=== PATIENT | female | born 1965 | race Hispanic/Latino ===

== ENCOUNTER 2018-01-27 13:43 | Emergency (ER) | payer BC, OTHER ==
[2018-01-27 14:31] LABS: Protime INR 1.05
[2018-01-27 14:34] LABS: Absolute Monocytes 0.7 K/uL (0.1-1.3); Absolute Neutrophil 5.2 K/uL (1.8-8.0); Basophils % 0.8 % (0-1.3); Eosinophils % 2.8 % (0-4.4); Hematocrit 43.1 % (36.0-45.0); Lymphocytes % 32.6 % (15.3-44.8); MCH 28.4 pg (27.0-35.0); MCV 81.1 fL (80-100); MPV 9.6 fL (7.6-11.3); Monocytes % 7.8 % (3.3-12.3); RBC Red Blood Cell Count 5.32 M/uL (3.86-4.86)
[2018-01-27 14:58] LABS: ALT/SGPT 133 U/L (12-78); AST/SGOT 88 U/L (15-37); Albumin 4.1 g/dL (3.4-5.0); Alkaline Phosphatase 106 U/L (45-117); BUN Blood Urea Nitrogen 11 mg/dL (7-18); Bicarbonate 28 mmol/L (21-32); Bilirubin Direct 0.3 mg/dL (0-0.2); Bilirubin Total 0.8 mg/dL (0.2-1.0); CKMB Creatine Kinase MB < 1.0 ng/mL (0.3-3.6); Creatine Phosphokinase 122 U/L (26-192); Glucose Level 87 mg/dL (74-106); Magnesium 2.3 mg/dL (1.8-2.4); NT PRO-BNP 44 pg/mL (<125); Potassium 3.8 mmol/L (3.5-5.1); Protein, Total 8.1 g/dL (6.4-8.2); Sodium Level 142 mmol/L (136-145); Troponin (Emerg Dept Use Only) < 0.02 ng/mL (0.0-0.045)
[2018-01-27] MEDS ORDERED: LIDOCAINE VISCOUS 2% SOLN 15 ML UDC ONE (15:12)
[2018-01-27] MEDS ORDERED: CLOPIDOGREL 75 MG TABLET ONE (15:12)
[2018-01-27] MEDS ORDERED: FAMOTIDINE 20 MG/2 ML VIAL IV ONE (15:12)
[2018-01-27] MEDS ORDERED: MAGNE/ALUM HYDROXD 30 ML UCUP ONE (15:12)
[2018-01-27 15:22] LABS: Urine Blood NEGATIVE (NEG); Urine Glucose NEGATIVE (NEG); Urine Protein NEGATIVE (NEG)
--- NOTE | 2018-01-27 16:06 | EKG ---
Test Date: 2018-01-27 Test Time: 14:08:48 Light Rail Train Operator: MARILYN MEASUREMENT RESULTS: Intervals: Rate: 68 NE: 134 QRSD: 68 QT: 350 QTc: 372 [place]: P: 13 NE: 134 QRS: 0 T: 19 INTERPRETIVE STATEMENTS: Normal sinus rhythm Normal ECG No previous ECG available for comparison Electronically Signed On 01-27-18 16:05:53 CDT by James High
--- NOTE | 2018-01-27 17:53 | RAD REPORT ---
EXAM DESCRIPTION: RAD - Chest Single View - 01/27/2018 2:34 pm CLINICAL HISTORY: CHEST PAIN Chest pain. COMPARISON: Chest Pa And Lat (2 Views) dated 10/03/2015; ABDOMEN ACUTE SERIES dated 11/20/2012 FINDINGS: Portable technique limits examination quality. The lungs are grossly clear. The heart is normal in size. No displaced fractures. IMPRESSION: No acute intrathoracic process suspected.
--- NOTE | 2018-01-27 18:10 | EDPHYS ---
Physician Documentation [facility] Name: Nuria Muñoz Age: 52 yrs Sex: Female : 1965 Arrival Date: 01/27/2018 Time: 13:46 Bed 20 Private MD: Jose Sanchez ED Physician Reymundo Melgar HPI: 01/27 14:56 This 52 yrs old Female presents to ER via Ambulatory with complaints of Chest cp Pain. 14:56 The patient or guardian reports chest pain that is located primarily in the anterior cp chest wall. Onset: pain started yesterday and resolved, pain returned this morning. 14:56 The pain radiates to right back. cp 14:56 Associated signs and symptoms: Pertinent positives: nausea. cp 14:56 The chest pain is described as squeezing. cp 14:56 Duration: The patient or guardian reports multiple episodes, that wax and wane, with no cp pattern. Severity of pain: in the emergency department the pain has improved. 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 - Social history:: Smoking status: Patient/guardian denies using tobacco. - Ebola Screening: : No symptoms or risks identified at this time. ROS: 15:00 Constitutional: Negative for body aches, chills, fever, poor PO intake. cp 15:00 Eyes: Negative for injury, pain, redness, and discharge. cp 15:00 ENT: Negative for drainage from ear(s), ear pain, sore throat, difficulty swallowing, difficulty handling secretions. 15:00 Neck: Negative for pain with movement, pain at rest, stiffness. 15:00 Cardiovascular: Positive for chest pain, Negative for edema, palpitations. 15:00 Respiratory: Negative for cough, shortness of breath, wheezing. 15:00 Abdomen/GI: Negative for abdominal pain, nausea, vomiting, and diarrhea, anorexia, black/tarry stool, rectal bleeding. 15:00 Back: Positive for radiated pain. 15:00 : Negative for urinary symptoms. 15:00 Skin: Negative for cellulitis, rash. 15:00 Neuro: Negative for altered mental status, headache, syncope, near syncope, weakness. 15:00 All other systems are negative. Exam: 14:17 ECG was reviewed by the Attending Physician. cp 15:10 Constitutional: The patient appears in no acute distress, alert, awake, cp non-diaphoretic, non-toxic, well developed, well nourished. 15:10 Head/Face: Normocephalic, atraumatic. cp 15:10 Eyes: Periorbital structures: appear normal, Conjunctiva: normal, no exudate, no injection, Sclera: no appreciated abnormality, Lids and lashes: appear normal, bilaterally. 15:10 ENT: External ear(s): are unremarkable, Nose: is normal, Mouth: Lips: moist, Oral mucosa: pink and intact, moist, Posterior pharynx: is normal, airway is patent, no erythema, no exudate. 15:10 Neck: ROM/movement: is normal, is supple, without pain, no range of motions limitations, no meningismus, no nuchal rigidity. 15:10 Chest/axilla: Inspection: normal, Palpation: crepitus, is not appreciated, tenderness, that is mild, of the anterior aspect of right upper chest, anterior aspect of left upper chest and mid-sternal area. 15:10 Cardiovascular: Rate: normal, Rhythm: regular, Heart sounds: murmur, not appreciated, Edema: is not appreciated, JVD: is not appreciated. 15:10 Respiratory: the patient does not display signs of respiratory distress, Respirations: normal, no use of accessory muscles, no retractions, no splinting, no tachypnea, labored breathing, is not present, Breath sounds: are clear throughout, no decreased breath sounds, no stridor, no wheezing. 15:10 Abdomen/GI: Inspection: abdomen appears normal, Bowel sounds: active, all quadrants, Palpation: abdomen is soft and non-tender, in all quadrants, rebound tenderness, is not appreciated, voluntary guarding, is not appreciated, involuntary guarding, is not appreciated. 15:10 Back: pain, that is mild, ROM is normal. 15:10 Skin: cellulitis, is not appreciated, no rash present. 15:10 Neuro: Orientation: to person, place \T\ time. Mentation: lucid, able to follow commands, Cerebellar function: is grossly normal, Motor: moves all fours, strength is normal, Sensation: no obvious gross deficits. Vital Signs: 13:55 BP 134 / 90; Pulse 80; Resp 16; Temp 98.2; Pulse Ox 100% on R/A; Weight 76.2 kg; Height iw 5 ft. 4 in. (162.56 cm); Pain 8/10; 14:27 BP 128 / 85; Pulse 75; Resp 17; Pulse Ox 96% ; sv 15:14 BP 123 / 77; Pulse 78; Resp 17; Pulse Ox 96% ; sv 16:19 BP 136 / 90; Pulse 69 MON; Resp 18; Pulse Ox 97% on R/A; sv 16:58 BP 142 / 96; Pulse 68; Resp 14; Pulse Ox 99% ; sv 17:35 BP 126 / 78; Pulse 69; Resp 16; Pulse Ox 99% ; sv 13:55 Body Mass Index 28.84 (76.20 kg, 162.56 cm) iw 16:19 Sinus Rhythm sv MDM: 13:59 Patient medically screened. cp 15:00 Differential diagnosis: abnormal EKG, acute myocardial infarction, acute pericarditis, cp chest wall pain, costochondritis, esophagitis, gastritis, pleurisy, pneumonia, pneumothorax, pulmonary embolus, stable angina, thoracic aortic disection, unstable angina. 18:07 The patient was not given aspirin in the Emergency Department. Not indicated due to cp patient's past medical history. 18:07 Data reviewed: vital signs, nurses notes, lab test result(s), EKG, radiologic studies, cp plain films, and as a result, I will discharge patient. Test interpretation: by ED physician or midlevel provider: ECG, plain radiologic studies. Special discussion: Based on the patient's history, exam, and Dx evaluation, there is no indication for emergent intervention or inpatient Tx. It is understood by the patient/guardian that if the Sx's persist or worsen they need to return immediately for re-evaluation. 01/27 14:05 Order name: Basic Metabolic Panel; Complete Time: 15:32 cp 01/27 15:33 Interpretation: Normal except: CL 108; GFR 66. cp 09/11 14:05 Order name: CBC with Diff; Complete Time: 14:57 / 14:57 Interpretation: Normal except: RBC 5.32; HGB 15.1. / 14:05 Order name: Ckmb; Complete Time: 15:32 01/27 14:05 Order name: CPK; Complete Time: 15:32 01/27 14:05 Order name: LFT's; Complete Time: 15:32 01/27 15:33 Interpretation: Normal except: AST 88; ALT 133; BILID 0.3; GLOB 4.0; A/G 1.0. cp / 14:05 Order name: Magnesium; Complete Time: 15:32 01/27 14:05 Order name: NT PRO-BNP; Complete Time: 15:32 01/27 14:05 Order name: PT-INR; Complete Time: 14:57 01/27 14:05 Order name: Ptt, Activated; Complete Time: 14:57 01/27 14:05 Order name: Troponin (emerg Dept Use Only); Complete Time: 15:32 01/27 14:15 Order name: LAB Add On 01/27 14:15 Order name: Lipase; Complete Time: 14:57 01/27 15:33 Interpretation: LIP 281; Reviewed. 01/27 15:20 Order name: Urine Dipstick--Ancillary (enter results); Complete Time: 15:32 01/27 17:19 Order name: Troponin I; Complete Time: 18:07 01/27 18:07 Interpretation: TROP < 0.02; Reviewed. 01/27 14:05 Order name: XRAY Chest (1 view); Complete Time: 18:07 01/27 14:05 Order name: EKG; Complete Time: 14:06 01/27 14:05 Order name: Cardiac monitoring; Complete Time: 14:24 01/27 14:05 Order name: EKG - Nurse/Tech; Complete Time: 14:24 01/27 14:05 Order name: IV Saline Lock; Complete Time: 14:24 01/27 14:05 Order name: Labs collected and sent; Complete Time: 14:24 01/27 14:05 Order name: O2 Per Protocol; Complete Time: 14:24 01/27 14:05 Order name: O2 Sat Monitoring; Complete Time: 14:24 cp 01/27 14:05 Order name: Urine Dipstick-Ancillary (obtain specimen); Complete Time: 14:24 cp 01/27 17:19 Order name: EKG; Complete Time: 17:19 cp 01/27 17:19 Order name: EKG - Nurse/Tech; Complete Time: 17:34 cp EC:17 Rate is 68 beats/min. Rhythm is regular. ND interval is normal. QRS interval is normal. cp QT interval is normal. Interpreted by me. Reviewed by me. Administered Medications: 15:09 Drug: PlaVIX 75 mg Route: PO; sv 15:28 Follow up: Response: No adverse reaction sv 15:10 Drug: Pepcid 20 mg Route: IVP; Site: right antecubital; sv 15:28 Follow up: Response: No adverse reaction sv 15:13 Drug: GI Cocktail without - (Maalox Suspension 30 ml, Lidocaine Liquid 2 % 15 sv ml) Route: PO; 15:28 Follow up: Response: No adverse reaction sv Disposition: 01/28 06:40 Co-signature as Attending Physician, Reymundo Melgar MD I agree with the assessment and khalida plan of care. Disposition: 01/27/18 18:08 Discharged to Home. Impression: Chest pain, unspecified. - Condition is Stable. - Discharge Instructions: Nonspecific Chest Pain, Aspirin and Your Heart. - Medication Reconciliation Form, Thank You Letter, Antibiotic Education, Prescription Opioid Use form. - Follow up: Rocky Sy MD; When: 1 - 2 days; Reason: Recheck today's complaints. - Problem is new. - Symptoms have improved. Signatures: Dispatcher [employer] Dorina Mahajan RN RN sv Anderson, Corey, MD MD cha Williams, Irene, RN RN iw Page, Corey, PA PA cp Corrections: (The following items were deleted from the chart) 01/27 14:23 14:05 Urine Test ordered. cp sv 18:37 18:08 01/27/2018 18:08 Discharged to Home. Impression: Chest pain, unspecified. sv Condition is Stable. Forms are Medication Reconciliation Form, Thank You Letter, Antibiotic Education, Prescription Opioid Use. Follow up: Rocky Sy; When: 1 - 2 days; Reason: Recheck today's complaints. Problem is new. Symptoms have improved. cp
--- NOTE | 2018-01-27 18:10 | ER ---
Nurse's Notes [facility] Name: Nuria Muñoz Age: 52 yrs Sex: Female : 1965 Arrival Date: 01/27/2018 Time: 13:46 Bed 20 Private MD: Jose Sanchez Diagnosis: Chest pain, unspecified Presentation: 01/27 13:53 Presenting complaint: Patient states: been having mid sternal chest pain since iw yesterday, now has pain under breasts, squeezing pain radiates to back through right shoulder blade, also has mild SOB, took some TUMS with no relief, feels like gall bladder pain but worse, denies vomiting, mild nausea, rates pain 8/10, intermittent. Transition of care: patient was not received from another setting of care. Onset of symptoms was January 27, 2018. Risk Assessment: Do you want to hurt yourself or someone else? Patient reports no desire to harm self or others. Initial Sepsis Screen: Does the patient meet any 2 criteria? No. Patient's initial sepsis screen is negative. Does the patient have a suspected source of infection? No. Patient's initial sepsis screen is negative. Care prior to arrival: Medication(s) given: ASA, 325 mg, x 1. 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 - Social history:: Smoking status: Patient/guardian denies using tobacco. - Ebola Screening: : No symptoms or risks identified at this time. Screenin:05 Abuse screen: Denies threats or abuse. Denies injuries from another. Nutritional sv screening: No deficits noted. Tuberculosis screening: No symptoms or risk factors identified. Fall Risk None identified. Assessment: 13:00 Also complains of nausea, shortness of breath. General: Appears in no apparent sv distress. comfortable, well developed, Behavior is calm, cooperative, appropriate for age. Pain: Complains of pain in diaphragm, xyphoid area and mid-sternal area Pain does not radiate. Pain currently is 8 out of 10 on a pain scale. Quality of pain is described as sharp, Pain began 2 hours ago. Is intermittent, Alleviated by nothing. Current management is with tums. Neuro: Level of Consciousness is awake, alert, obeys commands, Oriented to person, place, time, situation, Moves all extremities. Full function Speech is normal. Cardiovascular: Patient's skin is warm and dry. Rhythm is sinus rhythm. Respiratory: Reports shortness of breath Respiratory effort is even, unlabored, Respiratory pattern is regular, symmetrical. GI: Abdomen is flat, Reports nausea. Derm: Skin is pink, warm \T\ dry. Musculoskeletal: No signs and/or symptoms reported regarding the musculoskeletal system. 15:14 Reassessment: Patient appears in no apparent distress at this time. No changes from sv previously documented assessment. Patient and/or family updated on plan of care and expected duration. Pain level reassessed. Patient is alert, oriented x 3, equal unlabored respirations, skin warm/dry/pink. 16:20 Reassessment: Patient appears in no apparent distress at this time. Patient and/or sv family updated on plan of care and expected duration. Pain level reassessed. Patient is alert, oriented x 3, equal unlabored respirations, skin warm/dry/pink. c/o worsening heartburn. 17:34 Reassessment: Patient appears in no apparent distress at this time. Patient and/or sv family updated on plan of care and expected duration. Pain level reassessed. Patient is alert, oriented x 3, equal unlabored respirations, skin warm/dry/pink. 18:36 Reassessment: Patient appears in no apparent distress at this time. Patient and/or sv family updated on plan of care and expected duration. Pain level reassessed. Patient is alert, oriented x 3, equal unlabored respirations, skin warm/dry/pink. Vital Signs: 13:55 BP 134 / 90; Pulse 80; Resp 16; Temp 98.2; Pulse Ox 100% on R/A; Weight 76.2 kg; Height iw 5 ft. 4 in. (162.56 cm); Pain 8/10; 14:27 BP 128 / 85; Pulse 75; Resp 17; Pulse Ox 96% ; sv 15:14 BP 123 / 77; Pulse 78; Resp 17; Pulse Ox 96% ; sv 16:19 BP 136 / 90; Pulse 69 MON; Resp 18; Pulse Ox 97% on R/A; sv 16:58 BP 142 / 96; Pulse 68; Resp 14; Pulse Ox 99% ; sv 17:35 BP 126 / 78; Pulse 69; Resp 16; Pulse Ox 99% ; sv 13:55 Body Mass Index 28.84 (76.20 kg, 162.56 cm) iw 16:19 Sinus Rhythm sv ED Course: 13:00 Patient maintains SpO2 saturation greater than 95% on room air. sv 13:05 Patient has correct armband on for positive identification. Placed in gown. Bed in low sv position. v belt mold assembler and curer on. Pulse ox on. NIBP on. Door closed. Head of bed elevated. 13:05 Initial lab(s) drawn, by me, sent to lab. Inserted saline lock: 20 gauge in right sv antecubital area, using aseptic technique. Blood collected. Flushed right antecubital with 5 ml normal saline. 13:46 Patient arrived in ED. rg4 13:46 Jose Sanchez MD is Private Physician. rg4 13:55 Triage completed. iw 13:55 Arm band placed on. iw 13:59 Reymundo Key PA is PHCP. cp 13:59 Reymundo Melgar MD is Attending Physician. cp 14:01 Dorina Gong, SADE is Primary Nurse. sv 14:19 EKG done, by data reduction technician. reviewed by Reymundo GOLDMAN. at1 14:23 LAB Add On Sent. sv 14:24 X-ray(s) taken. sv 14:35 XRAY Chest (1 view) In Process Unspecified. EDMS 14:35 X-ray completed. Portable x-ray completed in exam room. Patient tolerated procedure sw well. 15:14 Awaiting lab results, Awaiting radiology results. Awaiting re-evaluation by ER provider.sv 16:20 Awaiting radiology results. Awaiting re-evaluation by ER provider. sv 16:42 Nurse Practitioner and/or Physician Color Receiver to see patient. sv 17:34 Repeat lab(s) drawn. by me, sent to lab. sv 17:35 Awaiting lab results. sv 18:07 Rocky Sy MD is Referral Physician. cp 18:36 No provider procedures requiring assistance completed. IV discontinued, intact, sv bleeding controlled, No redness/swelling at site. Pressure dressing applied. Administered Medications: 15:09 Drug: PlaVIX 75 mg Route: PO; sv 15:28 Follow up: Response: No adverse reaction sv 15:10 Drug: Pepcid 20 mg Route: IVP; Site: right antecubital; sv 15:28 Follow up: Response: No adverse reaction sv 15:13 Drug: GI Cocktail without - (Maalox Suspension 30 ml, Lidocaine Liquid 2 % 15 sv ml) Route: PO; 15:28 Follow up: Response: No adverse reaction sv Outcome: 18:08 Discharge ordered by MD. cp 18:36 Discharged to home ambulatory, with family. sv 18:36 Condition: stable 18:36 Discharge instructions given to patient, family, Instructed on discharge instructions, follow up and referral plans. Demonstrated understanding of instructions, follow-up care. 18:37 Patient left the ED. sv Signatures: Dispatcher [employer] Dorina Mahajan RN RN sv Williams, Irene, RN RN iw Gonzales, Amanda, buffing machine tender EKG Tat1 Lucita Orellana Corey, PA PA kyung Cedeno, Flor rg4
[2018-01-27 18:56] VITALS: TEMP 98.2
[2018-01-27 19:00] VITALS: O2SAT 99
[2018-01-27 19:02] VITALS: BP 126/78
--- NOTE | 2018-01-28 12:12 | EKG ---
Test Date: 2018-01-27 Test Time: 17:35:05 Accessioner: JOHN MEASUREMENT RESULTS: Intervals: Rate: 67 WI: 144 QRSD: 68 QT: 368 QTc: 388 [place]: P: 16 WI: 144 QRS: 5 T: 27 INTERPRETIVE STATEMENTS: Normal sinus rhythm Normal ECG Compared to ECG 01/27/2018 14:08:48 No significant changes Electronically Signed On 01-28-18 12:08:55 CDT by James High
== END 2018-01-27 18:37 | disposition home or self-care (01) ==
LOC: ER 13:43
DX: R07.9 Chest pain, unspecified (principal); J45.909 Unspecified asthma, uncomplicated; Z88.1 Allergy status to other antibiotic agents; Z88.6 Allergy status to analgesic agent
CPT/HCPCS: 36415; 71045; 80048; 80076; 81003; 82550; 82553; 83690; 83735; 83880; 84484; 85025; 85610; 85730; 93005; 96374; 99285

== ENCOUNTER 2020-10-23 19:16 | Emergency (ER) | payer BC ==
--- OUTSIDE RECORDS SUMMARY | 2020-10-23 19:19 | XMS REPORT | Continuity of Care Document ---
:1965 Author Organization [facility] t Address [address] [place] [id number] Care Team Providers Name Role Phone Laura MATT Primary Care Physician Lyric MATT MPH, Santiago Attending Clinician [phone] Jennifer Tolliver Attending Clinician SANTIAGO GUNTER Attending Clinician Unavailable Yusef CHAUDHRY Attending Clinician Unavailable Ethan Wen MD Attending Clinician Hesham Attending Clinician Unavailable Jorje CHAUDHRY Attending Clinician Unavailable Angela STUART, Amarilis Attending Clinician Unavailable Yeny Gregg NP Attending Clinician SANTIAGO GUNTER Admitting Clinician Unavailable Payers Payer Name Policy Type Policy Effective Date Expiration Date Sour ce Number BLUE CROSS/BLUE [id number] 2018 [facility] - Medical POS/PPO/EPOxxxxxx [place] [id number] 2018-Pr [phone] [address], [place] [address] Problems Condition Condition Condition Status Onset Resolution Last Treating Co mments Source Name Details Category Date Date Treatment Clinician Date Elevated Elevated Disease Active [facility] - enzymes enzymes [facility] Fatty Fatty Disease Active [facility] liver liver [facility] Endometrio Endometrio Disease Active C [facility] sis [facility] Allergies, Adverse Reactions, Alerts Allergy Allergy Status Severity Reaction(s) Onset Inactive Treating Comm ents Source Name Type Date Date Clinician Codeine Propensi Active Itching, 0 [facility] Nausea And 5[facility]22 [facility] - adverse Vomiting, 00:00: Medica l reaction Rash 00 Center s Mustard Propensi Active Anaphylaxis [address] ty to 5-22 Yellow [facility] - adverse 00:00: mustard Medical reaction 00 Center s Yellow Propensi Active Itching, [facility] Dye [facility] to Rash 5-22 [facility] - adverse 00:00: Medical reaction 00 Center s Ciproflo Propensi Active Shortness Of [address] xacin ty to Breath, Rash 2-12 [facility] - adverse 00:00: Medical reaction 00 Center s Ibuprofe Propensi Active Rash [facility] ty to 2-12 [facility] - adverse 00:00: Medical reaction 00 Center s Latex Propensi Active Rash [facility] to 2-12 [facility] - adverse 00:00: Medical reaction 00 Center s Butorpha Propensi Active Shortness Of [address] nol ty to Breath, 2-12 [facility] - Tartrate adverse Palpitations 00:00: M edical reaction 00 Center s butorpha DA Active SV 2009-05 [facility] [place] codeine DA Active SV 2009-05 [facility] -[facility] [place] hydrocod DA Active SV 2009-05 [facility] one 05-29 [facility] [place] ibuprofe DA Active SV 2009-05 [facility] n -11 [facility] [place] yellow DA Active [place] 2009-05 [facility] dye -11 [facility] 00[facility] [place] yellow FA Active [place] 2009- [facility] dye -11 [facility] [place] Family History Family Member Diagnosis Comments Start Date Stop Date Source Natural brother Cirrhosis [facility] Maternal uncle Cirrhosis [facility] Natural mother Cirrhosis [facility] Social History Social Habit Start Date Stop Date Quantity Comments Source Sex Assigned At [facility] Tobacco use and 2020-09-29 2020-09-[address] [facility] kes - exposure 00:00:00 00:00:00 Medical Center Alcohol intake 2020-09-29 2020-09-[address] [facility] - 00:00:00 00:00:00 non-drinker of Medical Ce nter alcohol (finding) Smoking Status Start Date Stop Date Source Never smoker [facility] Medications Ordered Filled Start Stop Current Ordering Indication Dosage Frequency Signature Comments Components Source Medication Medication Date Date Medication? Clinician (SIG) Name Name levalbutero 2019-05 Yes Inhale by C [facility] l tartrate 1-13 mouth via [facility] - (XOPENEX 11:02: inhaler. Medic al HFA INHL) 00 Center levocetiriz 2019-05 Yes 10mg Take [address] ine 1-13 by mouth. [facility] - dihydrochlo 11:02: Medica l ride (XYZAL 00 Center ORAL) estradioL Yes Q.5W twice a [facility] (VAGIFEM) 3-22 week . [facility] - 10 mcg 00:00: Medical tablet 00 Center ipratropium Yes [facility] (ATROVENT) 1-21 [facility] - 42 mcg 00:00: Medical (0.06 %) 00 Center 0.06% nasal spray Immunizations Ordered Immunization Filled Immunization Date Status Commen ts Source Name Name Covid-19 Vaccine 2020-08-[address] [facility] - Mrna (Pf) 00:00:00 [facility] (Pfizer/biontMELA Sciences) Covid-19 Vaccine 2020-07-[address] [facility] - Mrna (Pf) 00:00:00 [facility] (Pfizer/biontech) Vital Signs Vital Name Observation Time Observation Value Comments Source Systolic blood 2020-09-29 09:24:00 114 mm[Hg] [facility] pressure [facility] Diastolic blood 2020-09-29 09:24:00 74 mm[Hg] [facility] Heart rate 2020-09-29 09:24:00 78 /min [facility] Body temperature 2020-09-29 09:24:[address] [facility] [facility] Respiratory rate 2020-09-29 09:24:00 16 /min [facility] Body height 2020-09-29 09:24:00 165.1 cm [facility] Body weight 2020-09-29 09:24:00 70.126 kg [facility] BMI 2020-09-29 09:24:00 25.73 kg/m2 [facility] Oxygen saturation in 2020-09-29 09:24:00 98 /min [facility] Arterial blood by Medical Ce nter Pulse oximetry Procedures Procedure Date / Time Performed Performing Clinician Sourc e CBC W/PLT COUNT & AUTO 2020-09-29 10:19:00 Bola Dunn [facility] HEPATITIS B CORE 2020-09-29 10:19:00 Bola Dunn [facility], IGG 2020-09-29 10:19:00 Bola Dunn [facility] HEPATITIS B SURFACE 2020-09-29 10:19:00 Bola Dunn [facility] BASIC METABOLIC PANEL (7) 2020-09-29 10:18:00 Bola Dunn [facility] HEPATIC FUNCTION PANEL 2020-09-29 10:18:00 Bola Dunn [facility] HEPATIC FUNCTION PANEL 2020-03-20 08:34:00 [facility]ASE 2020-03-20 08:34:00 Rafaela Gunter [facility] - ACTIVITY, BLOOD [facility] GGT 2020-03-20 08:34:[address] [facility] MISCELLANEOUS LAB ORDER 2019-11-05 08:10:00 Lyric [facility] GAMMA GLUTAMYL 2019-11-05 08:10:00 [facility] s - TRANSFERASE (GGT) [facility] HEPATIC FUNCTION PANEL 2019-11-05 08:10:00 Rafaela Gunter [facility] Plan of Care Planned Activity Planned Date Details Comments Source Future Scheduled 2024-06-[address] [facility] - Test 00:00:00 (procedure) [code = [facility] 13200143] Future Scheduled 2021-01-[address] [facility] - Test 00:00:00 (Season Ended) [code Medical Center = INFLUENZA VACCINE (Season Ended)] Future Scheduled 2020-05-[address] [facility] - Test 00:00:00 (12+) [code = [facility] DEPRESSION SCREENING (12+)] Future Scheduled 2016 SHINGLES VACCINES ([address] [facility] - Test 00:00:00 of 2) [code = [facility] SHINGLES VACCINES (1 of 2)] Future Scheduled 1985 DTAP/TDAP/TD VACCINES [facility] - Test 00:00:00 (1 - Tdap) [code = [facility] enter DTAP/TDAP/TD VACCINES (1 - Tdap)] Future Scheduled [address] [facility] - Test 00:00:00 [facility] breast (procedure) [code = 385658085] Future Scheduled [address] - Test 00:00:00 malignant neoplasm of [facility] colon (procedure) [code = 435651734] Results Test Description Test Time Test Comments Results Result Comments Source Hepatitis B surface antibody 2020-09-29 15:00:00 Test Item Value Reference Range Interpretation Comme nts Hep B S Ab (test code = 8591.1 See_Comment H [Au tomated message] The 31861-4) system which ge nerated this result tra nsmitted reference range : <8.0 mIU/mL. The ref erence range was not u sed to interpret this result as normal/abnormal . REJI (test code = REJI) Global President MORTEZA [facility] Lab Interpretation (test Abnormal code = 30507-7) [facility], IgG ([facility] Only)2020-09-29 15:00:00 Test Item Value Reference Range Interpretation Comments Hep A IgG (test code = Reactive Nonreactive A 17209-3) REJI (test code = REJI) Global President ID - QUINTIN L Lab Interpretation (test Abnormal code = 71052-6) [facility] SURFACE [id number] 15:00:00 Test Item Value Reference Range Interpretation Comments HEPATITIS B SURFACE ANTIBODY 8591.1 mIU/mL <8.0 H (BEAKER) (test code = 647) Global President ID - QUINTIN LOperator ID - QUINTIN LHEPATITIS A ANTIBODY, [id number] 15:00:00 Test Item Value Reference Range Interpretation Comments HEPATITIS A IGG ANTIBODY (BEAKER) Reactive Nonreactive A (test code = 2797) Global President ID - QUINTIN LHepatitis B core antibody, [id number] 14:58:00 Test Item Value Reference Range Interpretation Comments Hep B Core Total Ab Nonreactive Nonreactive (test code = 10544-4) REJI (test code = REJI) Global President ID Christopher RIBEIRO L Lab Interpretation (test Normal code = 41983-7) [facility], [id number] 14:58:00 Test Item Value Reference Range Interpretation Comments HEPATITIS B CORE TOTAL ANTIBODY Nonreactive Nonreactive (BEAKER) (test code = 497) Global President ID - QUINTIN LBasic Metabolic [id number] 11:39:00 Test Item Value Reference Range Interpretation Comments Sodium (test code = 142 meq/L 181-082 4903-2) Potassium (test code = 4.8 meq/L 3.5-5.1 2823-3) Chloride (test code = 106 meq/L 98-107 2075-0) CO2 (test code = 31 meq/L 22-29 H 8-9) BUN (test code = 11 mg/dL 7-21 3094-0) Creatinine (test code 0.70 mg/dL 0.57-1.25 = 2160-0) Glucose (test code = 96 mg/dL 70-105 2345-7) Calcium (test code = 9.5 mg/dL 8.4-10.2 90611-4) EGFR (test code = 87 mL/min/1.73 [place] [address]-6) NOT ACCURATE CREATININE CLEARANCE IN PREDICTING GLOMERULAR FILTRATION RATE . ESTIMATED GFR I S NOT APPLICABLE FOR DIALYSIS PATIENTS. REJI (test code = REJI) Global President ID - EDEmerald City Beer [employer] Lab Interpretation Abnormal (test code = 37022-0) [facility] Center[facility]atic function [id number] 11:39:00 Test Item Value Reference Range Interpretation Comments Protein, Total (test 7.2 See_Comment [Autom ated code = 2885-2) message] The system which generated this result transmit timo reference range : 6.0 - 8.3 gm/dL . The reference range was not u sed to interpret th is result as normal/abnormal . Albumin (test code = 4.4 g/dL 3.5-5 19291-4) Total Bilirubin (test 1.5 mg/dL 0.2-1.2 H code = 1974-2) Bilirubin, Direct 0.6 mg/dL 0.1-0.5 H (test code = 1967-7) Alkaline Phosphatase 67 U/L 40-150 (test code = 6768-6) AST (test code = 24 U/L 5-34 1920-8) ALT (test code = 28 U/L 6-55 1742-6) REJI (test code = REJI) Global President ID - EDEmerald [employer] Lab Interpretation Abnormal (test code = 77281-6) [facility] CenterBASIC METABOLIC [id number] 11:39:00 Test Item Value Reference Range Interpretation Comments SODIUM (BEAKER) 142 meq/L 136-145 (test code = 381) POTASSIUM (BEAKER) 4.8 meq/L 3.5-5.1 (test code = 379) CHLORIDE (BEAKER) 106 meq/L 98-107 (test code = 382) CO2 (BEAKER) (test 31 meq/L 22-29 H code = 355) BLOOD UREA NITROGEN 11 mg/dL 7-21 (BEAKER) (test code = 354) CREATININE (BEAKER) 0.70 mg/dL 0.57-1.25 (test code = 358) GLUCOSE RANDOM 96 mg/dL 70-105 (BEAKER) (test code = 652) CALCIUM (BEAKER) 9.5 mg/dL 8.4-10.2 (test code = 697) EGFR (BEAKER) (test 87 mL/min/1.73 ESTIMA TIMO GFR IS code = 1092) sq m NOT ACCURATE CREATININE CLEARANCE IN PREDICTING GLOMERULAR FILTRATION RATE . ESTIMATED GFR I S NOT APPLICABLE FOR DIALYSIS PATIEN TS. Global President ID - EDASIHEPATIC FUNCTION [id number] 11:39:00 Test Item Value Reference Range Interpretation Comments TOTAL PROTEIN (BEAKER) (test code = 7.2 gm/dL 6.0-8.3 770) ALBUMIN (BEAKER) (test code = 1145) 4.4 g/dL 3.5-5.0 BILIRUBIN TOTAL (BEAKER) (test code 1.5 mg/dL 0.2-1.2 H = 377) BILIRUBIN DIRECT (BEAKER) (test 0.6 mg/dL 0.1-0.5 H code = 706) ALKALINE PHOSPHATASE (BEAKER) (test 67 U/L 40-150 code = 346) AST (SGOT) (BEAKER) (test code = 24 U/L 5-34 353) ALT (SGPT) (BEAKER) (test code = 28 U/L 6-55 347) Global President ID - EDASICBC with platelet count + automated [id number] 11:14:00 Test Item Value Reference Range Interpretation Comments WBC (test code = 6690-2) 7.1 See_Comment [A utomated message] The system [employer] generated this result transmitted ref erence range: 3.5 - 10 .5 K/L. The refe rence range was not u sed to interpret this result as normal/abnor mal. RBC (test code = 789-8) 5.27 See_Comment H [Au tomated message] The system [employer] generated this result transmitted ref erence range: 3.93 - 5 .22 M/L. The refe rence range was not u sed to interpret this result as normal/abnor mal. MCHC (test code = 786-4) 34.6 See_Comment [A utomated message] The system [employer] generated this result transmitted ref erence range: 32.2 - 3 5.5 GM/DL. The refe rence range was not u sed to interpret this result as normal/abnor mal. Hematocrit (test code = 40.7 % 34.1-44.9 4544-3) MCV (test code = 787-2) 77.2 fL 79.4-94.8 L MCH (test code = 785-6) 26.8 pg 25.6-32.2 RDW (test code = 788-0) 13.6 % 11.7-14.4 Platelets (test code = 159 See_Comment [Aut omated message] 777-3) The system [employer] generated this result transmitted ref erence range: 150 - 45 0 K/CU MM. The referen ce range was not u sed to interpret this result as normal/abnor mal. MPV (test code = 11.4 fL 9.4-12.3 40628-2) nRBC (test code = 413) 0 See_Comment [Aut omated message] The system [employer] generated this result transmitted ref erence range: 0 - 0 /1 00 WBC. The refere nce range was not u sed to interpret this result as normal/abnor mal. % Neutros (test code = 56 % 429) % Lymphs (test code = 32 % 430) % Monos (test code = 8 % 431) % Eos (test code = 432) 2 % % Baso (test code = 437) 1 % # Neutros (test code = 4.01 See_Comment [Aut omated message] 670) The system [employer] generated this result transmitted ref erence range: 1.56 - 6 .13 K/L. The refe rence range was not u sed to interpret this result as normal/abnor mal. # Lymphs (test code = 2.26 See_Comment [Auto mated message] 414) The system [employer] generated this result transmitted ref erence range: 1.18 - 3 .74 K/L. The refe rence range was not u sed to interpret this result as normal/abnor mal. # Monos (test code = 0.58 See_Comment H [Autom ated message] 415) The system [employer] generated this result transmitted ref erence range: 0.24 - 0 .36 K/L. The refe rence range was not u sed to interpret this result as normal/abnor mal. # Eos (test code = 416) 0.16 See_Comment [Au tomated message] The system [employer] generated this result transmitted ref erence range: 0.04 - 0 .36 K/L. The refe rence range was not u sed to interpret this result as normal/abnor mal. # Baso (test code = 417) 0.04 See_Comment [A utomated message] The system [employer] generated this result transmitted ref erence range: 0.01 - 0 .08 K/L. The refe rence range was not u sed to interpret this result as normal/abnor mal. Immature 1 % 0-1 Granulocytes-Relative (test code = 2801) Lab Interpretation (test Abnormal code = 13120-8) [facility] W/PLT COUNT & AUTO [id number] 11:14:00 Test Item Value Reference Range Interpretation Comments WHITE BLOOD CELL COUNT (BEAKER) 7.1 K/ L 3.5-10.5 (test code = 775) RED BLOOD CELL COUNT (BEAKER) 5.27 M/ L 3.93-5.22 H (test code = 761) HEMOGLOBIN (BEAKER) (test code = 14.1 GM/DL 11.2-15.7 410) HEMATOCRIT (BEAKER) (test code = 40.7 % 34.1-44.9 411) MEAN CORPUSCULAR VOLUME (BEAKER) 77.2 fL 79.4-94.8 L (test code = 753) MEAN CORPUSCULAR HEMOGLOBIN 26.8 pg 25.6-32.2 (BEAKER) (test code = 751) MEAN CORPUSCULAR HEMOGLOBIN CONC 34.6 GM/DL 32.2-35.5 (BEAKER) (test code = 752) RED CELL DISTRIBUTION WIDTH 13.6 % 11.7-14.4 (BEAKER) (test code = 412) PLATELET COUNT (BEAKER) (test 159 K/CU MM 150-450 code = 756) MEAN PLATELET VOLUME (BEAKER) 11.4 fL 9.4-12.3 (test code = 754) NUCLEATED RED BLOOD CELLS 0 /100 WBC 0-0 (BEAKER) (test code = 413) NEUTROPHILS RELATIVE PERCENT 56 % (BEAKER) (test code = 429) LYMPHOCYTES RELATIVE PERCENT 32 % (BEAKER) (test code = 430) MONOCYTES RELATIVE PERCENT 8 % (BEAKER) (test code = 431) EOSINOPHILS RELATIVE PERCENT 2 % (BEAKER) (test code = 432) BASOPHILS RELATIVE PERCENT 1 % (BEAKER) (test code = 437) NEUTROPHILS ABSOLUTE COUNT 4.01 K/ L 1.56-6.13 (BEAKER) (test code = 670) LYMPHOCYTES ABSOLUTE COUNT 2.26 K/ L 1.18-3.74 (BEAKER) (test code = 414) MONOCYTES ABSOLUTE COUNT (BEAKER) 0.58 K/ L 0.24-0.36 H (test code = 415) EOSINOPHILS ABSOLUTE COUNT 0.16 K/ L 0.04-0.36 (BEAKER) (test code = 416) BASOPHILS ABSOLUTE COUNT (BEAKER) 0.04 K/ L 0.01-0.08 (test code = 417) IMMATURE GRANULOCYTES-RELATIVE 1 % 0-1 PERCENT (BEAKER) (test code = 2801) [id number] 22:47:00 Test Item Value Reference Range Interpretation Comments GGT (test code = 27 U/L ) REJI (test code = FASTING:YESFASTING: YES REJI) RAC (test code = Performing Organization RAC) Information: Site ID: [id number] [facility]: [facility] Address: [address] [place] [id number] Director: Moe Pascal [facility] CenterLYSOSOMAL ACID LIPASE ACTIVITY, [id number] 22:47:00 Test Item Value Reference Interpretation Comments Range LYSOSOMAL ACID 111 See_Comment [Automated m essage] The LIPASE (test code system [facility] generated this = 2784646) result transmit timo reference range: 69 - 203 pmol/hr/uL. The reference r abdelrahman was not used to interpr et this result as rebecca l/abnormal. INTERPRETATION SEE NOTE These results show normal (test code = enzyme activity , and are 0632082) thereforenot co nsistent with Lysosomal Acid Lipase (SMITHA) deficiency. In terpretation reviewed by: Araceli Ugarte MD. , [facility].This test performed and reported under supervisi on of Tameka Mallory, FAC. IF THE ORDERING /TREATING PHYSICIAN HAS A [place] QUESTIONSREGARD ING THESE RESULTS, PLEASE CONTACT THE POSLavu S [employer] JUANITO GUY [phone] ext [phone] or ext [phone] AND K TO SPEAK WITHTHE SUKI ORAmarilis DIRECTOR HUMAN RESOURCES TRAINEE. FOR GE NERAL QUESTIONS ABOUT Gigantt GEN ETIC TESTING, PLEASE CALL THE GENE INFOLINE AT [phone]. This test canno t detect carrier status for lysosomal acidlipase (SMITHA ) deficiency or differentiat e between WolmanDisease ( WD), the early onset phe notype and cholesteryleste r storage disease (CESD), the late onset phenotype ofLAL deficiency. Res ults reported as above the up per limit ofnormal are co nsidered normal, as they do not indicatelysosom al acid lipase enzyme d eficiency. This test was d laurend and its analytical performancechar acteristics have been deter mined by userfoxti [facility]. It has not beencleared or approved by FDA. This assay has been validatedpursua nt to the CLIA regulation s and is used for clinicalpur poses. REJI (test code = FASTING:YESFAS REJI) TING: YES RAC (test code = Performing RAC) Organization Information: Site ID: [id number] Name: [employer], Address: [address] [place] [phone] Director: Yin Kennedy MD,PhD,PATSY [facility] [id number] 12:45:00 Test Item Value Reference Range Interpretation Comments SCAN RESULT (test code = 9135915) HEPATIC FUNCTION [id number] 09:11:00 Test Item Value Reference Range Interpretation Comments TOTAL PROTEIN (BEAKER) 7.4 gm/dL 6.0-8.3 Speci men slightly (test code = 770) hemolyzed ALBUMIN (BEAKER) (test 4.3 g/dL 3.5-5.0 Speci men slightly code = 1145) hemolyzed BILIRUBIN TOTAL 1.1 mg/dL 0.2-1.2 Specimen sli ghtly (BEAKER) (test code = hemoly zed 377) BILIRUBIN DIRECT 0.5 mg/dL 0.1-0.5 Specimen sl ightly (BEAKER) (test code = hemoly zed 706) ALKALINE PHOSPHATASE 70 U/L 40-150 (BEAKER) (test code = 346) AST (SGOT) (BEAKER) 25 U/L 5-34 Specimen slightly (test code = 353) hemolyzed ALT (SGPT) (BEAKER) 27 U/L 6-55 Specimen slightly (test code = 347) hemolyzed Global President ID - AAHAMIDGAMMA GLUTAMYL TRANSFERASE (GGT)2019-11-05 09:11:00 Test Item Value Reference Range Interpretation Comments GAMMA GLUTAMYL 30 U/L 9-64 Specimen slig htly TRANSFERASE (BEAKER) hemolyz ed (test code = 364) Global President ID - AAHAMIDTISSUE [id number] 19:06:00Surgical Pathology Report Case: [id number] Authorizing Provider: Rafaela Gunter MD Collected: 10/12/2019 10:20 AM [facility]ingLocation[facility] Radiology Main Received: 10/12/2019 02:08 PM Pathologist: Mena Danielson MD Specimen: Biopsy, Liver LIVER, TRANSJUGUL AR BIOPSY:- CONSISTENT WITH STEATOHEPATITIS - MODERATE STEATOSIS (~50%), PREDOMINANTLY MACROSTEATOSIS WITH SOME MICROSTEATOSIS - PORTAL CHRONIC INFLAMMATION, MILD - FOCAL, MILD LOBULAR INFLAMMATION - VERY FOCAL, MINIMAL BALLOONING DEGENERATION -FIBROSIS STAGE 3, WITH FOCAL STAGE 4 (CIRRHOSIS)- SEE COMMENT Signing Pathologist Direct Phone Line: [phone] signed by Mena Danielson MD on 10/15/2019 at 7:06 PMThe ballooning degeneration is very focal and minimal. The non- alcoholic steatohepatitis (BISHNU) activity scoring isperformed according to guidelines from non-alcoholic steatohepatitis, clinical research network (Klei zoë, et al. Hepatology 2005. 41:1313-21), at the request of the clinicianThe BISHNU score is: Steatosis: Grade 2 + lobular inflammation, grade 1 + hepatocyte ballooning score 1 = 4/8. The fibrosis score is mostly 3 of 4 with focally 4 (perisinusoidal and portal/periportal fibrosis).59916, 73102 x 4Operation: Transvenous liver biopsy. Diagnosis: Elevated liver enzymes, fatty liver, rule out cirrhosisA. Liver tissueA. Received in formalin labeled with the patient's name, accession number and "liver biopsy" are multiple gill-yellow to gill-red soft tissue needle core biopsies measuring 2.5 x 0.5 x 0.3 cm in aggregate and ranging in size from 0.2 cm long to 1.7 cm long and each measuring 0.1 cm in diameter. The specimen is submitted in toto following filtration in cassette A1. KENAN/plPerformed.The interpretation of this case included the use of immunohistochemistry or special stains.Trichrome: highlights periportal fibrosis and shows some bridging fibrosisReticulin- mostly normal trabeculae with focal thickenedPAS-d: no abnormal intracellular deposits seenIron- mild increase 2+, hepatocellularControl Slides Examined: In-house known positive controls were evaluated along with the test tissue. These control slides run alongside of the patients sample show appropriate staining. Internal positive and negative controls when available are evaluated Immunohistochemistry technical testing was performed at [facility], Pathology Laboratory where it was developed and its performance characteristics were determined. It has not been cleared or approved by the U.S. Food and Drug Administration. The FDA has determined that such clearance or approval is not necessary. The test is used for clinical purposes. It should not be regarded as investigational or for research. This laboratory is certified under the Clinical Laboratory Improvement Amendments of 1988 (CLIA-88) as qualified to perform high complexity clinical laboratory testing.[facility], Department of Pathology, [address] [place] [address], [facility], [address] [place] [id number], [facility], [address] [place] [id number], DOO, TRANSCATHETER BIOPSY 2019-10-12 13:30:00Self referral : Based on Fibroscan resultsElevated liver enzymes, fatty liver, splenomegaly, rule out cirrhosis. Please measure hepatic venous pressure gradientElevated liver enzymes, fatty liver, splenomegaly, rule out cirrhosis. Please measure hepatic venous pressure gradientSpecify Organ:->LIVERliverReason for Exam:->Elevated liver enzymes, fatty liver, splenomegaly, rule out cirrhosis. Please measure hepatic venous pressure gradientliverFINAL REPORT Transjugular liver biopsy. History: Elevated LFTs. Modality: Ultrasound and fluoroscopy. Sedation: Moderate sedation was administered. 2 mg of Versed and 100 mcg of fentanyl IV was used for moderate sedation monitored under my direction. Total intra-service time of sedation was 20 minutes. The patient's vital signs weremonitored throughout the procedure and recorded in the patient's medical record by the nurse. Primar y Global President: Price Mcmillan MD. Accounting/Finance Tutor: None. Approach: Right internal jugular vein Estimated blood loss: < 5 cc. Specimen: Five 19-gauge core specimens placed within formalin and sent to pathology. Fluoroscopy Time: 2.0 min.Reference Air Kerma (Ka, r): 17.1 mGy. Technique: Informed written consent was obtained. Discussion of risks, benefits, and alternatives were made with the patient. The patient expressed understanding and agreed to proceed. A universal timeout was performed prior to starting the procedure. All elements maximal sterile barrier technique was utilized for this procedure, including utilization of sterile scrub solution for skin prep, a large sterile sheet to cover the areas of the patient that were not prepped, and hand hygiene, mask, head covering, and sterile gown for performing radiologist and scrub technologist. Ultrasound evaluation showed a patent and compressible right internal jugular vein, which was punctured under direct real-time ul trasound guidance with a micropuncture needle. An ultrasound image was saved to PACS. A 0.018 inch wire was placed through the needle into the right atrium. A 4 Tajik micropuncture sheath was placed. A 0.035 inch J-wire was placed through the micropuncture sheath and the sheath was exchanged for a9 Tajik sheath. A 5 Tajik angled tip catheter was used to select the right hepatic vein. Venogram w as performed. Pressures were obtained through the catheter with measurements as follows: wedged hepatic - 10 mmHg, free hepatic - 6, and right atrium - 5. A long metal reinforced 7 Tajik sheath was placed through the 9 Tajik sheath into the right hepatic vein. A long 19-gauge core biopsy needle wasthen placed through sheath with 5 core samples obtained within the liver. The needle and sheath wereremoved. Hemostasis was obtained with manual compression. The patient tolerated the procedure welland left the department in the same condition. Findings: Venogramdemonstrates patent right hepatic vein and intrahepatic IVC. Impression: Successful, uncomplicated transjugular liver biopsy, using fluoroscopic guidance and conscious sedation. HVPG 4 mmHg. Signed: Price Mcmillan MDReport Verified Date/Time: 10/12/2019 13:30:11 Reading Location: [facility] P048 Angio Body Reading Room PROTHROMBIN [id number] 07:44:00 Test Item Value Reference Range Interpretation Comments PROTIME (BEAKER) (test code = 14.3 seconds 11.9-14.2 H 759) INR (BEAKER) (test code = 370) 1.1 <=5.9 Effective 10/14/2018: PT Reference Range ChangeNew: 11.9-14.2 Previous: 11.7- 14.7RECOMMENDED COUMADIN/WARFARIN INR THERAPY RANGESSTANDARD DOSE: 2.0-3.0 Includes: PROPHYLAXIS for venous thrombosis, systemic embolization; TREATMENT for venous thrombosis and/or pulmonary embolus.HIGH RISK: Target INR is2.5-3.5 for patients wiht mechanical heart valves.[id number] 07:44:00 Test Item Value Reference Range Interpretation Comments PARTIAL THROMBOPLASTIN TIME 29.4 seconds 22.5-36.0 (BEAKER) (test code = 760) CBC W/PLT COUNT & AUTO [id number] 07:32:00 Test Item Value Reference Range Interpretation Comments WHITE BLOOD CELL COUNT (BEAKER) 8.1 K/ L 3.5-10.5 (test code = 775) RED BLOOD CELL COUNT (BEAKER) 4.92 M/ L 3.93-5.22 (test code = 761) HEMOGLOBIN (BEAKER) (test code = 13.3 GM/DL 11.2-15.7 410) HEMATOCRIT (BEAKER) (test code = 37.9 % 34.1-44.9 411) MEAN CORPUSCULAR VOLUME (BEAKER) 77.0 fL 79.4-94.8 L (test code = 753) MEAN CORPUSCULAR HEMOGLOBIN 27.0 pg 25.6-32.2 (BEAKER) (test code = 751) MEAN CORPUSCULAR HEMOGLOBIN CONC 35.1 GM/DL 32.2-35.5 (BEAKER) (test code = 752) RED CELL DISTRIBUTION WIDTH 13.4 % 11.7-14.4 (BEAKER) (test code = 412) PLATELET COUNT (BEAKER) (test 155 K/CU MM 150-450 code = 756) MEAN PLATELET VOLUME (BEAKER) 11.3 fL 9.4-12.3 (test code = 754) NUCLEATED RED BLOOD CELLS 0 /100 WBC 0-0 (BEAKER) (test code = 413) NEUTROPHILS RELATIVE PERCENT 56 % (BEAKER) (test code = 429) LYMPHOCYTES RELATIVE PERCENT 32 % (BEAKER) (test code = 430) MONOCYTES RELATIVE PERCENT 9 % (BEAKER) (test code = 431) EOSINOPHILS RELATIVE PERCENT 3 % (BEAKER) (test code = 432) BASOPHILS RELATIVE PERCENT 1 % (BEAKER) (test code = 437) NEUTROPHILS ABSOLUTE COUNT 4.53 K/ L 1.56-6.13 (BEAKER) (test code = 670) LYMPHOCYTES ABSOLUTE COUNT 2.61 K/ L 1.18-3.74 (BEAKER) (test code = 414) MONOCYTES ABSOLUTE COUNT (BEAKER) 0.69 K/ L 0.24-0.36 H (test code = 415) EOSINOPHILS ABSOLUTE COUNT 0.23 K/ L 0.04-0.36 (BEAKER) (test code = 416) BASOPHILS ABSOLUTE COUNT (BEAKER) 0.06 K/ L 0.01-0.08 (test code = 417) IMMATURE GRANULOCYTES-RELATIVE 0 % 0-1 PERCENT (BEAKER) (test code = 2801) MR, ABDOMEN, [id number] 14:00:00Self referral : Based on Fibroscan resultswith RENAL PROTOCOLwith RENAL PROTOCOLLocation: For [place] Only->with RENAL PROTOCOLFINAL REPORT MRI of the abdomen dated August 24, 2019 COMPARISON: July 13, 2019 Comment: Multiplanar T1 and T2-weighted images of the abdomen, postcontrast axial and coronal T1-weighted images of the abdomen were obtained. Liver is normal in size. There is diffusely decreased s ignal intensity on out of phase examination as compared to that of in phase examination consistent with fatty hepatic infiltrate. No abnormal enhancement or suspicious mass is seen in the liver. The margin liver is not irregular. No MR evidence of cirrhosis is seen. Spleen is enlarged measuring approximately 14.7 x 3.8 x 10.6 cm. The splenic, spleen mesenteric, portal, and hepatic veins are patent. Main portal vein measures approximately 1.3 cm. Gallbladder is noted visualized. No biliary dilatationis seen. Pancreas and adrenals are unremarkable. Both kidneys are normal in size and functioning. A focal signal abnormality is seen in the mid anterior pole right kidney. This is only seen on the postcontrast examination and not noted on the precontrast studies. This may be artifactual and possible less likely mass lesion. No adenopathy is seen in the abdomen. The visualized small and large bowel are unremarkable. IMPRESSION:1. Signal abnormality in the mid anterior pole right kidney may be artifactual versus mass lesion. This can be followed with subsequent study in 6 months.2. Fatty liver.3. Splenomegaly. Signed: Deepika Blanc MDReport Verified Date/Time: 08/24/2019 14:00:00 Reading Location: [address] Body Reading Room -[id number] 10:32:00 Test Item Value Reference Range Interpretation Comments POC-CREATININE 0.7 mg/dL 0.6-1.3 : TESTED AT [facility] ([employer]) (test [address] [facility] code = 1859) [place] [id number]: Global President/Techni chavez ID = [id number] for Matilda Chu POC-EGFR ([facility]) 88 mL/min/1.73M2 (test code = 1860) MR, ABDOMEN, [id number] 14:45:00Self referral : Based on Fibroscan resultswith liver protocol and elastographywith liver protocol and elastography FINAL REPORT MRI of the abdomen WITHOUT and WITH intravenous contrast with MRI elastography. TECHNIQUE: Multiplanar, multisequence imaging of the abdomen was performed both pre and post administration of intravenous gadolinium in a dynamic fashion. 3-dimensional reconstructions were acquired and utilized by the dictating radiologist at the time of interpretation. MR elastography was performed. INDICATION: Fatty liver, fibrosis of liver, please evaluate the liver, contour of the liver, rule out splenomegaly, cirrhosis, liver mass. Please do with liver protocol and elastography. COMPARISON: None. FINDINGS: LOWER THORAX: Unremarkable. LIVER: The liver stiffness value estimatedfrom MR elastography images was: 2.66 kPa at 60 Hz. Homogeneous liver parenchyma smooth contour. Diffuse parenchymal signal drop on out of phase sequence, suggesting microscopic fat. No focal abnormal h epatic signal or enhancement. BILIARY: Status post cholecystectomy. No biliary ductal dilatation orfilling defect.SPLEEN: 15.2 cm splenomegaly.PANCREAS: No focal masses or ductal dilatation. ADRENALS: No adrenal nodules.KIDNEYS/URETERS: Right renal anterior interpolar 2 x 1.7 cm progressively enhancing mixed solid- cystic nodule (best seen on portal venous phase series 1401, image 7). The 0.7 cm cystic component of this nodule is low on T1 and T2 weighted images. No right renal hydronephrosis. Normal left kidney. PERITONEUM/RETROPERITONEUM: No free fluid.LYMPH NODES: No lymphadenopathy.VESSELS: Patent right renal vein and IVC. Unremarkable abdominal aorta. Singular right renal artery origin from aorta. GI TRACT: No distention or wall thickening. BONES AND SOFT TISSUES: Unremarkable. IMPRESSION:1.The liver stiffness value estimated from MR elastography images was: 2.66 kPa at 60 Hz. The stiffness value has been found to correspond with a patient high normal versus inflammatory without fibrosisas per the results from a meta analysis published by Linares et al. Clin Gastroenterol Hepatol. 2015 Mar; 13(3): 440-451.e6. 2.Diffuse fatty liver and splenomegaly. 3.Incidental right renal nonspecific 2 cm enhancing mixed solid-cystic nodule, recommend follow-up with MRI of the abdomen with renal protocol. Signed: Deepika Blanc MDReport Verified Date/Time: 07/13/2019 14:45:19 Reading Location: [address] ANTI-NUCLEAR ANTIBODY (MOOSE)2019-07-02 05:37:00 Test Item Value Reference Range Interpretation Comments ANTI-NUCLEAR ANTIBODY (MOOSE) (BEAKER) Positive Negative A (test code = 418) Test performed by IFA method.MOOSE TITER AND [id number] 05:37:00 Test Item Value Reference Range Interpretation Comments MOOSE TITER (BEAKER) (test code = >=:2560 1541) MOOSE PATTERN (BEAKER) (test code = Homogeneous 1781) HEPATITIS C PCR, [id number] 13:24:00 Test Item Value Reference Range Interpretation Comments HCV RESULT COMPONENT HCV RNA not detected HCV RNA not detected (BEAKER) (test code = 2699) This test uses a Real-Time Polymerase Chain Reaction (RT-PCR) methodology and was performed using ANABELL Ampliprep/ANABELL TaqMan HCV test kit version 2.0 ([employer]).Reportable range for this assay is 15 - 100,000,000 IU per mL (1.18 - 8.00 Log IU/mL).HEPATITIS A ANTIBODY, IGM 2019-06-30 21:43:00 Test Item Value Reference Range Interpretation Comments HEPATITIS A IGM ANTIBODY (BEAKER) Nonreactive Nonreactive (test code = 498) Global President ID - DBHEPATITIS A ANTIBODY, [id number] 21:43:00 Test Item Value Reference Range Interpretation Comments HEPATITIS A IGG ANTIBODY (BEAKER) Nonreactive Nonreactive (test code = 2797) Global President ID - [id number] 12:30:00 Test Item Value Reference Range Interpretation Comments FERRITIN (BEAKER) (test code = 361) 348 ng/mL 5-275 H Global President ID - GALAPHEMOGLOBIN [id number] 11:27:00 Test Item Value Reference Range Interpretation Comments HEMOGLOBIN A1C (BEAKER) (test code = 4.9 % 4.3-6.1 368) HEPATITIS B SURFACE [id number] 11:25:00 Test Item Value Reference Range Interpretation Comments HEPATITIS B SURFACE ANTIBODY < mIU/mL <8.0 (BEAKER) (test code = 647) Global President ID - TAMARA CALPHA FETOPROTEIN (AFP), TUMOR [id number] 11:18:00 Test Item Value Reference Range Interpretation Comments ALPHA-FETOPROTEIN (BEAKER) (test 3.2 ng/mL <10.0 code = 1094) Global President ID - TAMARA CHEPATITIS B CORE ANTIBODY, [id number] 11:18:00 Test Item Value Reference Range Interpretation Comments HEPATITIS B CORE TOTAL ANTIBODY Nonreactive Nonreactive (BEAKER) (test code = 497) Global President ID - TAMARA CHEPATITIS B SURFACE [id number] 11:16:00 Test Item Value Reference Range Interpretation Comments HEPATITIS B SURFACE ANTIGEN (2) Nonreactive Nonreactive (BEAKER) (test code = 2585) Global President ID - TAMARA CHEPATITIS C [id number] 11:16:00 Test Item Value Reference Range Interpretation Comments HEPATITIS C ANTIBODY (BEAKER) Nonreactive Nonreactive (test code = 367) Global President ID - TAMARA CCOMPREHENSIVE METABOLIC [id number] 11:10:00 Test Item Value Reference Range Interpretation Comments TOTAL PROTEIN 7.5 gm/dL 6.0-8.3 (BEAKER) (test code = 770) ALBUMIN (BEAKER) 4.5 g/dL 3.5-5.0 (test code = 1145) ALKALINE PHOSPHATASE 83 U/L 40-150 (BEAKER) (test code = 346) BILIRUBIN TOTAL 1.1 mg/dL 0.2-1.2 (BEAKER) (test code = 377) SODIUM (BEAKER) (test 141 meq/L 136-145 code = 381) POTASSIUM (BEAKER) 4.0 meq/L 3.5-5.1 (test code = 379) CHLORIDE (BEAKER) 107 meq/L 98-107 (test code = 382) CO2 (BEAKER) (test 26 meq/L 22-29 code = 355) BLOOD UREA NITROGEN 10 mg/dL 7-21 (BEAKER) (test code = 354) CREATININE (BEAKER) 0.74 mg/dL 0.57-1.25 (test code = 358) GLUCOSE RANDOM 96 mg/dL 70-105 (BEAKER) (test code = 652) CALCIUM (BEAKER) 9.8 mg/dL 8.4-10.2 (test code = 697) AST (SGOT) (BEAKER) 37 U/L 5-34 H (test code = 353) ALT (SGPT) (BEAKER) 52 U/L 6-55 (test code = 347) EGFR (BEAKER) (test INSUFFIC IENT CLINICAL code = 1092) DATA TO CALCULA TE ESTIMATED GFR. Global President ID - GALAPLIPID [id number] 10:58:00 Test Item Value Reference Range Interpretation Comments TRIGLYCERIDES (BEAKER) (test code = 80 mg/dL 540) CHOLESTEROL (BEAKER) (test code = 144 mg/dL 631) HDL CHOLESTEROL (BEAKER) (test code 41 mg/dL = 976) LDL CHOLESTEROL CALCULATED (BEAKER) 87 mg/dL (test code = 633) Triglyceride Reference Range: Low Risk <150 Borderline 150-199 High Risk 200-499 Very High Risk >=500Cholesterol Reference Range: Low Risk <200 Borderline 200-239 High Risk >240HDL Cholesterol Reference Range: Low Risk >=60 High Risk <40LDL Cholesterol Reference Range: Optimal <100 Near Optimal 100-129 Borderline 130-159 High 160-189 Very High >=190 Global President ID - GALAPBILIRUBIN, [id number] 10:58:00 Test Item Value Reference Range Interpretation Comments BILIRUBIN DIRECT (BEAKER) (test 0.5 mg/dL 0.1-0.5 code = 706) Global President ID - [id number] 10:56:00 Test Item Value Reference Range Interpretation Comments ALPHA-1 ANTITRYPSIN (BEAKER) 134.10 mg/dL 90.00-200.00 (test code = 502) Global President ID - TAMARA CIMMUNOGLOBULIN G (IGG)2019-06-30 10:55:00 Test Item Value Reference Range Interpretation Comments IMMUNOGLOBULIN G (IGG) (BEAKER) 1088 mg/dL 540-1,822 (test code = 427) Global President ID - TAMARA CIRON, TIBC, % SAT. (WITHOUT FERRITIN)2019-06-30 10:55:00 Test Item Value Reference Range Interpretation Comments IRON (BEAKER) (test code = 547) 108.0 ug/dL 40.0-160.0 TOTAL IRON BINDING CAPACITY 349 ug/dL 250-450 (BEAKER) (test code = 769) IRON % SATURATION (2) (BEAKER) 31 % 20-55 (test code = 2590) Global President ID - TAMARA CPROTHROMBIN [id number] 10:30:00 Test Item Value Reference Range Interpretation Comments PROTIME (BEAKER) (test code = 13.5 seconds 11.9-14.2 759) INR (BEAKER) (test code = 370) 1.1 <=5.9 Effective 10/14/2018: PT Reference Range ChangeNew: 11.9-14.2 Previous: 11.7- 14.7RECOMMENDED COUMADIN/WARFARIN INR THERAPY RANGESSTANDARD DOSE: 2.0-3.0 Includes: PROPHYLAXIS for venous thrombosis, systemic embolization; TREATMENT for venous thrombosis and/or pulmonary embolus.HIGH RISK: Target INR is2.5-3.5 for patients wiht mechanical heart valves.CBC W/PLT COUNT & AUTO [id number] 10:22:00 Test Item Value Reference Range Interpretation Comments WHITE BLOOD CELL COUNT (BEAKER) 8.7 K/ L 3.5-10.5 (test code = 775) RED BLOOD CELL COUNT (BEAKER) 5.35 M/ L 3.93-5.22 H (test code = 761) HEMOGLOBIN (BEAKER) (test code = 14.6 GM/DL 11.2-15.7 410) HEMATOCRIT (BEAKER) (test code = 41.8 % 34.1-44.9 411) MEAN CORPUSCULAR VOLUME (BEAKER) 78.1 fL 79.4-94.8 L (test code = 753) MEAN CORPUSCULAR HEMOGLOBIN 27.3 pg 25.6-32.2 (BEAKER) (test code = 751) MEAN CORPUSCULAR HEMOGLOBIN CONC 34.9 GM/DL 32.2-35.5 (BEAKER) (test code = 752) RED CELL DISTRIBUTION WIDTH 13.5 % 11.7-14.4 (BEAKER) (test code = 412) PLATELET COUNT (BEAKER) (test 163 K/CU MM 150-450 code = 756) MEAN PLATELET VOLUME (BEAKER) 11.9 fL 9.4-12.3 (test code = 754) NUCLEATED RED BLOOD CELLS 0 /100 WBC 0-0 (BEAKER) (test code = 413) NEUTROPHILS RELATIVE PERCENT 56 % (BEAKER) (test code = 429) LYMPHOCYTES RELATIVE PERCENT 34 % (BEAKER) (test code = 430) MONOCYTES RELATIVE PERCENT 7 % (BEAKER) (test code = 431) EOSINOPHILS RELATIVE PERCENT 2 % (BEAKER) (test code = 432) BASOPHILS RELATIVE PERCENT 1 % (BEAKER) (test code = 437) NEUTROPHILS ABSOLUTE COUNT 4.88 K/ L 1.56-6.13 (BEAKER) (test code = 670) LYMPHOCYTES ABSOLUTE COUNT 2.93 K/ L 1.18-3.74 (BEAKER) (test code = 414) MONOCYTES ABSOLUTE COUNT (BEAKER) 0.64 K/ L 0.24-0.36 H (test code = 415) EOSINOPHILS ABSOLUTE COUNT 0.17 K/ L 0.04-0.36 (BEAKER) (test code = 416) BASOPHILS ABSOLUTE COUNT (BEAKER) 0.06 K/ L 0.01-0.08 (test code = 417) IMMATURE GRANULOCYTES-RELATIVE 0 % 0-1 PERCENT (BEAKER) (test code = 2801) MRI ABDOMEN [id number] 08:02:48CLINICAL INDICATION: R10.84 Generalized abdominal painMODALITY: Avanto 1.5 Aleisha 18 channel MRITECHNIQUE: Parallel imaging is accomplished using T2, in-phase, exj-qj-ykkhu, and breath-holding seq uences. The study is performed without paramagnetic contrast.IMPRESSION:1. Mild hepatomegaly with associated hepatic steatosis. Consider non alcoholic steatohepatitis given history of elevated liver function test. 2. Moderate splenomegaly. FINDINGS:Comparison: noneLung bases are clear. No pleural fluid is seen.The liver appears homogeneous. Vertical diameter measures 18.3 cm. Normal T2 hepatic signal is demonstrated indicating absence of increased iron deposition. Out of phase images demonstrate signal loss indicating a component of fatty infiltration. No masses or evidence of biliary dilatation.Gallbladder appears surgically absent. Spleen is enlarged with a vertical diameter of 16.1 cm. This exhibits a smooth contour. The stomach appears unremarkable.Pancreas is morphologically normal. No mass, pancreatic duct dilatation or peripancreatic edema is visible.Adrenal glands and kidneys are morphologically normal. No cystic or solid mass lesions. No hydronephrosis. Neither retrocrural nor retrop eritoneal lymph nodes are seen. No retroperitoneal mass is present.Abdominal wall is intact. No evidence of ascites.No evidence of bowel mass, mural thickening or pericolic edema.Osseous structures arenot remarkable.Common hepatic duct measures mm. Distal duct tapers smoothly. No filling defect to aldridge ggest retained common duct stone. Pancreatic duct appears unremarkable.
[2020-10-23] MEDS ORDERED: METHYLPREDNISOLONE 125 MG INJ ONE (20:05)
[2020-10-23] MEDS ORDERED: DIPHENHYDRAMINE 50 MG/ML VIAL ONE (20:05)
[2020-10-23] MEDS ORDERED: FAMOTIDINE 20 MG/2 ML VIAL IV ONE (20:05)
[2020-10-23] MEDS ORDERED: NA CHLORIDE 0.9% 1,000 ML ONE (20:16)
--- NOTE | 2020-10-23 21:13 | EDPHYS ---
Physician Documentation [facility] Name: Nuria Muñoz Age: 55 yrs Sex: Female : 1965 Arrival Date: 10/23/2020 Time: 19:16 Bed 12 Private MD: ED Physician Reymundo Melgar HPI: 10/24 00:28 This 55 yrs old Female presents to ER via Ambulatory with complaints of kb Allergic Reaction. 00:28 The patient presents with shortness of breath, throat itching. Onset: The kb symptoms/episode began/occurred just prior to arrival. Associated signs and symptoms: Pertinent positives: shortness of breath. Possible causes: allergy scratch test. At home the patient or guardian has treated the symptoms with clinic gave prednisone, epi pen, and xopenex. Severity of symptoms: At their worst the symptoms were moderate in the emergency department the symptoms are unchanged. The patient has not experienced similar symptoms in the past. The patient has not recently seen a physician. 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 - Social history:: Smoking status: Patient denies any tobacco usage or history of. ROS: 10/24 00:30 Constitutional: Negative for fever, chills, and weight loss. kb ENT: Positive for itching throat. Respiratory: Positive for cough, shortness of breath. All other systems are negative. Exam: 00:30 Constitutional: This is a well developed, well nourished patient who is awake, alert, kb and in no acute distress. ENT: Moist Mucous membranes Cardiovascular: Regular rate and rhythm with a normal S1 and S2. No gallops, murmurs, or rubs. No pulse deficits. Abdomen/GI: Soft, non-tender. No distention Skin: Warm, dry with normal turgor. Normal color. MS/ Extremity: Pulses equal, no cyanosis. Neurovascular intact. Full, normal range of motion. Neuro: Awake and alert, GCS 15, oriented to person, place, time, and situation. Moves all extremities. Normal gait. Psych: Awake, alert, with orientation to person, place and time. Behavior, mood, and affect are within normal limits. 00:30 Respiratory: the patient does not display signs of respiratory distress, Respirations: normal, Breath sounds: are clear throughout. Vital Signs: 10/23 19:35 BP 134 / 89; Pulse 112; Resp 19 S; Temp 97.4(TE); Pulse Ox 98% on R/A; Weight 70.76 kg ca1 (R); Height 5 ft. 4 in. (162.56 cm) (R); Pain 0/10; 20:55 BP 114 / 87; Pulse 90; Resp 18 S; Pulse Ox 98% on R/A; ca1 19:35 Body Mass Index 26.78 (70.76 kg, 162.56 cm) ca1 MDM: 19:43 Patient medically screened. kb 10/24 00:29 Data reviewed: vital signs, nurses notes. Data interpreted: Pulse oximetry: on room air kb is 98 %. Interpretation: normal. Counseling: I had a detailed discussion with the patient and/or guardian regarding: the historical points, exam findings, and any diagnostic results supporting the discharge/admit diagnosis, the need for outpatient follow up, a family practitioner, to return to the emergency department if symptoms worsen or persist or if there are any questions or concerns that arise at home. ED course: symptoms resolved after treatment. Pt feeling much better. 10/23 19:44 Order name: IV Start; Complete Time: 19:54 kb Administered Medications: 10/23 19:46 Drug: SOLU-Medrol (methylPrednisoLONE) 125 mg Route: IVP; Site: right antecubital; ca1 20:55 Follow up: Response: No adverse reaction; Marked relief of symptoms ca1 19:48 Drug: Benadryl (diphenhydrAMINE) 12.5 mg Route: IVP; Site: right antecubital; ca1 20:55 Follow up: Response: No adverse reaction; Marked relief of symptoms ca1 19:58 Drug: NS 0.9% 1000 ml Route: IV; Rate: 1000 ml; Site: right antecubital; ca1 20:55 Follow up: Response: No adverse reaction; IV Status: Completed infusion; IV Intake: ca1 1000ml 19:58 Drug: Pepcid (famotidine) 20 mg Route: IVP; Site: right antecubital; ca1 20:55 Follow up: Response: No adverse reaction ca1 Disposition: 10/24 07:53 Co-signature as Attending Physician, Reymundo Melgar MD I agree with the assessment and [facility] plan of care. Disposition: 10/23/20 21:12 Discharged to Home. Impression: Allergic reaction to allergy scratch test, Dyspnea. - Condition is Stable. - Discharge Instructions: Shortness of Breath, [id number], Allergies, [id number], Allergy Skin Testing. - Prescriptions for Pepcid 20 mg Oral Tablet - take 1 tablet by ORAL route every 12 hours for 5 days; 10 tablet. Prednisone 20 mg Oral Tablet - take 1 tablet by ORAL route once daily for 5 days; 5 tablet. - Medication Reconciliation Form, Thank You Letter, Antibiotic Education, Prescription Opioid Use form. - Follow up: Emergency Department; When: As needed; Reason: Worsening of condition. Follow up: Private Physician; When: 2 - 3 days; Reason: Recheck today's complaints, Continuance of care, Re-evaluation by your physician. Signatures: Lenora Mccarthy, CUTTER WET MACHINE-C CUTTER WET MACHINE-Reymundo Jauregui MD MD [facility] Dang Perez RN RN ca1 Corrections: (The following items were deleted from the chart) 10/23 21:26 21:12 10/23/2020 21:12 Discharged to Home. Impression: Allergic reaction to allergy ca1 scratch test; Dyspnea. Condition is Stable. Forms are Medication Reconciliation Form, Thank You Letter, Antibiotic Education, Prescription Opioid Use. Follow up: Emergency Department; When: As needed; Reason: Worsening of condition. Follow up: Private Physician; When: 2 - 3 days; Reason: Recheck today's complaints, Continuance of care, Re-evaluation by your physician. kb
--- NOTE | 2020-10-23 21:13 | ER ---
Nurse's Notes [facility] Name: Nuria Muñoz Age: 55 yrs Sex: Female : 1965 Arrival Date: 10/23/2020 Time: 19:16 Bed 12 Private MD: Diagnosis: Allergic reaction to allergy scratch test;Dyspnea Presentation: 10/23 19:35 Chief complaint: Patient states: Had allergy testing today around 1300 today, had ca1 coughing was given Zyrtec and sent home. At home had coughing, itching, called the Doctor's office and was instructed to go back. 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 Pt still experiencing symptoms and c/o lightheadedness and was sent to the ER. Coronavirus screen: Client denies travel out of the [place] in the last 14 days. cough unrelated to allergies, shortness of breath, Client presents with at least one sign or symptom that may indicate coronavirus-19. Standard/surgical mask placed on the client. Provider contacted for isolation considerations. Ebola Screen: Patient negative for fever greater than or equal to 101.5 degrees Fahrenheit, and additional compatible Ebola Virus Disease symptoms Patient denies exposure to infectious person. Patient denies travel to an Ebola-affected area in the 21 days before illness onset. No symptoms or risks identified at this time. Initial Sepsis Screen: Does the patient meet any 2 criteria? No. Patient's initial sepsis screen is negative. Does the patient have a suspected source of infection? No. Patient's initial sepsis screen is negative. Risk Assessment: Do you want to hurt yourself or someone else? Patient reports no desire to harm self or others. Onset of symptoms was October 23, 2020. 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 - Social history:: Smoking status: Patient denies any tobacco usage or history of. Screenin:00 Abuse screen: Denies threats or abuse. Denies injuries from another. Nutritional ca1 screening: No deficits noted. Tuberculosis screening: No symptoms or risk factors identified. Fall Risk IV access (20 points). Assessment: 20:00 General: Appears in no apparent distress. uncomfortable, Behavior is calm, cooperative, ca1 appropriate for age. Pain: Denies pain. Neuro: Level of Consciousness is awake, alert, obeys commands, Oriented to person, place, time, situation. Cardiovascular: Heart tones S1 S2 present Capillary refill < 3 seconds Patient's skin is warm and dry. Rhythm is regular. Respiratory: Reports cough that is Airway is patent Respiratory effort is even, unlabored, Respiratory pattern is regular, symmetrical, Breath sounds are clear bilaterally. GI:. EENT: Throat is clear. Derm: Skin is intact, is healthy with good turgor, Skin is pink, warm \T\ dry. Reports itching. Musculoskeletal: Circulation, motion, and sensation intact. Capillary refill < 3 seconds. 21:26 Reassessment: Patient appears in no apparent distress at this time. Patient and/or ca1 family updated on plan of care and expected duration. Pain level reassessed. Patient is alert, oriented x 3, equal unlabored respirations, skin warm/dry/pink. Patient states feeling better. Patient states symptoms have improved. Vital Signs: 19:35 BP 134 / 89; Pulse 112; Resp 19 S; Temp 97.4(TE); Pulse Ox 98% on R/A; Weight 70.76 kg ca1 (R); Height 5 ft. 4 in. (162.56 cm) (R); Pain 0/10; 20:55 BP 114 / 87; Pulse 90; Resp 18 S; Pulse Ox 98% on R/A; ca1 19:35 Body Mass Index 26.78 (70.76 kg, 162.56 cm) ca1 ED Course: 19:16 Patient arrived in ED. ag3 19:41 Triage completed. ca1 19:42 Arm band placed on right wrist. ca1 19:43 Lenora Mccarthy FNP-C is [facility]. kb 19:43 Reymundo Melgar MD is Attending Physician. kb 19:44 Inserted saline lock: 22 gauge in right antecubital area, using aseptic technique. ca1 19:54 Dang Perez, RN is Primary Nurse. ca1 20:00 Patient has correct armband on for positive identification. Bed in low position. Call ca1 light in reach. Side rails up X 1. Pulse ox on. NIBP on. 21:26 No provider procedures requiring assistance completed. IV discontinued, intact, ca1 bleeding controlled, No redness/swelling at site. Pressure dressing applied. Administered Medications: 19:46 Drug: SOLU-Medrol (methylPrednisoLONE) 125 mg Route: IVP; Site: right antecubital; ca1 20:55 Follow up: Response: No adverse reaction; Marked relief of symptoms ca1 19:48 Drug: Benadryl (diphenhydrAMINE) 12.5 mg Route: IVP; Site: right antecubital; ca1 20:55 Follow up: Response: No adverse reaction; Marked relief of symptoms ca1 19:58 Drug: NS 0.9% 1000 ml Route: IV; Rate: 1000 ml; Site: right antecubital; ca1 20:55 Follow up: Response: No adverse reaction; IV Status: Completed infusion; IV Intake: ca1 1000ml 19:58 Drug: Pepcid (famotidine) 20 mg Route: IVP; Site: right antecubital; ca1 20:55 Follow up: Response: No adverse reaction ca1 Intake: 20:55 IV: 1000ml; Total: 1000ml. ca1 Outcome: 21:12 Discharge ordered by . kb 21:26 Discharged to home ambulatory, with significant other. ca1 21:26 Condition: stable 21:26 Discharge instructions given to patient, Instructed on discharge instructions, follow up and referral plans. medication usage, Demonstrated understanding of instructions, follow-up care, medications, Prescriptions given X 2. 21:26 Patient left the ED. ca1 Signatures: Lenora Mccarthy, BLESSING MULLEN-Ailyn Recio ag3 Dang Perez RN RN ca1
[2020-10-23 21:44] VITALS: TEMP 97.4; O2SAT 98
[2020-10-23 21:50] VITALS: BP 114/87
== END 2020-10-23 21:26 | disposition home or self-care (01) ==
LOC: ER 19:16
DX: T78.49XA Other allergy, initial encounter (principal); R06.02 Shortness of breath; J45.909 Unspecified asthma, uncomplicated
CPT/HCPCS: 96361; 96375; 96374; 99284; J1200; J7030; J2930